=== PATIENT | female | born 1965 | race Caucasian/White ===

== ENCOUNTER → 2016-08-22 | Outpatient (CLI) | payer BC ==
[~2016-08-22] MED LIST: ASCA500 PO; IBUP-1427 PO; MULT-506 PO; OMEG10007 PO
[2016-08-22 18:31] LABS: BASO % 0.5 %; BASO ABS # 0.05 K/uL (0-0.2); COMPLETE YES; EOS % 2.7 %; HEMATOCRIT 40.2 % (37-47); IG% 0.1 %; LYMPH % 20.8 %; LYMPH ABS # 2.02 K/uL (1.2-3.4); MEAN CELL VOLUME 93.1 fL (80-100); MEAN CORPUSCULAR HEMOGLOBIN 31.7 pg (25-34); MEAN CORPUSCULAR HGB CONC 34.1 g/dl (32-36); MEAN PLATELET VOLUME 12.9 fL (7.4-10.4); MONO % 8.9 %; PLATELET COUNT 291 K/uL (130-400); RED BLOOD COUNT 4.32 M/uL (4.2-5.4)
== END | disposition home or self-care (01) ==
LOC: C.LABSPEC 17:10
PROVIDERS: ATTEND Internal Medicine
DX: M79.1 Myalgia (principal)

== ENCOUNTER → 2016-12-30 | Outpatient (CLI) | payer BC ==
[2016-12-30 09:33] LABS: BASO % 0.7 %; BASO ABS # 0.04 K/uL (0-0.2); COMPLETE YES; HEMATOCRIT 44.3 % (37-47); IG% 0.2 %; LYMPH ABS # 1.47 K/uL (1.2-3.4); MEAN CELL VOLUME 96.5 fL (80-100); MEAN CORPUSCULAR HEMOGLOBIN 31.8 pg (25-34); MEAN PLATELET VOLUME 12.3 fL (7.4-10.4); MONO % 6.8 %; NEUT % 63.3 %; PLATELET COUNT 260 K/uL (130-400); RED BLOOD COUNT 4.59 M/uL (4.2-5.4); WHITE BLOOD COUNT 5.45 K/uL (4.8-10.8)
[2016-12-30 09:47] LABS: ALB/GLOB RATIO 1.4 (0.9-2); ALT/SGPT 20 U/L (12-78); AST/SGOT 13 U/L (15-37); BLOOD UREA NITROGEN 15 mg/dl (7-18); BUN/CREATININE RATIO 22.3 (10-20); CALCIUM 9.1 mg/dl (8.5-10.1); CARBON DIOXIDE 32 mmol/L (21-32); CHLORIDE 107 mmol/L (98-107); CHOLESTEROL 192 mg/dl (0-200); CREATININE 0.67 mg/dl (0.60-1.20); GLUCOSE 88 mg/dl (70-99); SODIUM 143 mmol/L (136-145)
[2016-12-30 09:51] LABS: ALKALINE PHOSPHATASE 55 U/L (45-117); CHOLESTEROL/HDL RATIO 2.2; HDL CHOLESTEROL 86 mg/dl; TRIGLYCERIDES 71 mg/dl (0-150); VERY LOW DENSITY LIPOPROT CALC 14 mg/dl
== END | disposition home or self-care (01) ==
LOC: C.LAB 07:42
PROVIDERS: ATTEND Internal Medicine
DX: Z00.00 Encounter for general adult medical examination without abnormal findings (principal); Z02.1 Encounter for pre-employment examination; E78.5 Hyperlipidemia, unspecified

== ENCOUNTER → 2017-01-02 | Outpatient (CLI) | payer BC ==
--- NOTE | 2017-01-02 16:54 | DIAGNOSTIC IMAGING REPORT ---
CHEST 2 VIEWS ROUTINE CLINICAL HISTORY: WEIGHT LOSS, LAB AFTER dyspnea COMPARISON STUDY: 05/26/2006 FINDINGS: Unchanging left suprahilar calcified granuloma. Lungs are clear. Diaphragms are smooth. IMPRESSION: Chronic granulomatous change. No acute process. Electronically signed by: Tru Lau M.D. 01/02/2017 4:52 PM Dictated Date/Time: 01/02/2017 4:52 PM
[2017-01-02 17:49] LABS: THYROID STIMULATING HORMONE 1.9 uIu/ml (0.300-4.500)
== END | disposition home or self-care (01) ==
LOC: C.RAD 16:28
PROVIDERS: ATTEND Internal Medicine
DX: R63.4 Abnormal weight loss (principal); R06.00 Dyspnea, unspecified

== ENCOUNTER → 2017-04-24 | Outpatient (CLI) | payer BC | END | disposition home or self-care (01) | LOC: C.LABSPEC 14:52 | PROVIDERS: ATTEND Internal Medicine | DX: Z12.11 Encounter for screening for malignant neoplasm of colon (principal) ==

== ENCOUNTER → 2017-04-24 | Outpatient (CLI) | payer BC ==
[2017-04-24 18:26] LABS: URINE APPEARANCE CLEAR (CLEAR); URINE BILIRUBIN NEG (NEG); URINE COLOR DK YELLOW; URINE NITRITE NEG (NEG); URINE SPECIFIC GRAVITY 1.021 (1.000-1.030); UROBILINOGEN NEG (NEG)
[2017-04-24 18:29] LABS: BASO % 0.2 %; BASO ABS # 0.02 K/uL (0-0.2); COMPLETE YES; HEMATOCRIT 42.2 % (37-47); IG% 0.2 %; LYMPH % 18.5 %; LYMPH ABS # 1.67 K/uL (1.2-3.4); MANUAL MICROSCOPIC REQUIRED? NO; MEAN CELL VOLUME 98.1 fL (80-100); MEAN CORPUSCULAR HEMOGLOBIN 31.9 pg (25-34); MEAN CORPUSCULAR HGB CONC 32.5 g/dl (32-36); MEAN PLATELET VOLUME 12.5 fL (7.4-10.4); MONO % 8.4 %; NEUT % 71.7 %; PLATELET COUNT 268 K/uL (130-400); REVIEW REQ? NO; WHITE BLOOD COUNT 9.03 K/uL (4.8-10.8)
[2017-04-24 18:34] LABS: ALT/SGPT 19 U/L (12-78); BLOOD UREA NITROGEN 11 mg/dl (7-18); CALCIUM 9.2 mg/dl (8.5-10.1); CARBON DIOXIDE 27 mmol/L (21-32); CHLORIDE 104 mmol/L (98-107); GLUCOSE 85 mg/dl (70-99); POTASSIUM 3.6 mmol/L (3.5-5.1); SODIUM 138 mmol/L (136-145)
[2017-04-24 18:37] LABS: ALB/GLOB RATIO 1.3 (0.9-2); ALKALINE PHOSPHATASE 60 U/L (45-117); AST/SGOT 12 U/L (15-37)
[2017-04-28 15:32] LABS: VARICELLA ZOS VIR IGM AB <=0.90 (<=0.90)
== END | disposition home or self-care (01) ==
LOC: C.LABSPEC 17:27
PROVIDERS: ATTEND Internal Medicine
DX: M06.4 Inflammatory polyarthropathy (principal); Z11.59 Encounter for screening for other viral diseases

== ENCOUNTER → 2017-05-31 | Outpatient (CLI) | payer BC ==
--- NOTE | 2017-06-01 07:45 | MAMMOGRAPHY REPORT ---
BILATERAL DIGITAL SCREENING MAMMOGRAM TOMOSYNTHESIS WITH CAD: 05/31/2017 CLINICAL HISTORY: Routine screening. Patient has no complaints. TECHNIQUE: Breast tomosynthesis in addition to standard 2D mammography was performed. Current study was also evaluated with a Computer Aided Detection (CAD) system. COMPARISON: Comparison is made to exams dated: 05/19/2016 mammogram - [facility], mammogram, 04/18/2014 mammogram, 04/22/2013 mammogram, 04/20/2012 mammogram, and 04/19/2011 mammogra m - [facility]. BREAST COMPOSITION: The tissue of both breasts is heterogeneously dense, which may obscure small mas ses. FINDINGS: There is an asymmetry in the slightly lateral posterior right breast, near the fatglandul ar interface, only seen on the CC view corresponding tomosynthesis images. Although this could repre sent normal overlapping tissue, additional spot compression tomosynthesis views and possible ultrasou nd are recommended. No other suspicious mass, architectural distortion or cluster of microcalcifications is seen biljasmynea llmahsa. IMPRESSION: ACR BI-RADS CATEGORY 0: INCOMPLETE EVALUATION: NEED ADDITIONAL IMAGING EVALUATION The asymmetry in the slightly lateral and posterior right breast needs additional evaluation. The patient will be called to schedule an appointment. Approximately 10% of breast cancers are not detected with mammography. A negative mammographic report should not delay biopsy if a clinically suggestive mass is present. Elvia Whitman M.D. ay/:05/31/2017 16:09:21 Fruit Bar Maker: Audelia MEDINA(Salena)(Davi), [facility] letter sent: Addl Imaging 0 BI-RADS Code: ACR BI-RADS Category 0: Incomplete Evaluation: Need Additional Imaging Evaluation
== END | disposition home or self-care (01) ==
LOC: C.MAMM 11:02
PROVIDERS: ATTEND Surgery
DX: Z12.31 Encounter for screening mammogram for malignant neoplasm of breast (principal); R92.2 Inconclusive mammogram

== ENCOUNTER → 2017-06-02 | Outpatient (CLI) | payer BC ==
--- NOTE | 2017-06-07 08:59 | MAMMOGRAPHY REPORT ---
UNILATERAL RIGHT DIGITAL DIAGNOSTIC MAMMOGRAM TOMOSYNTHESIS AND TARGETED RIGHT ULTRASOUND: 06/02/2017 CLINICAL HISTORY: Callback from screening mammogram for right breast asymmetry. TECHNIQUE: Breast tomosynthesis in addition to standard 2D mammography was performed. Right CC and MLO compression 2-D and tomosynthesis images and spot compression rolled right cc tomosynthesis image s including C views were obtained. COMPARISON: Comparison is made to exams dated: 05/31/2017 mammogram, 05/19/2016 [address] - [facility], 04/29/2015 mammogram, 04/18/2014 mammogram, 04/22/2013 mammogram, and 04/20/2012 mammog delfino - [facility]. BREAST COMPOSITION: The tissue of the right breast is heterogeneously dense, which may obscure small masses. FINDINGS: The previously described asymmetry seen within the right lateral breast on the cc view only effaces on the additional spot compression CC views and rolled right cc views. Normal fibroglandula r tissue is seen in this region on the additional tomosynthesis images, without a suspicious mass or architectural distortion seen. Targeted ultrasound was performed of the right lateral breast in the region of the mammographic asymm etry. No suspicious masses or other suspicious sonographic abnormality is evident. IMPRESSION: ACR BI-RADS CATEGORY 2: BENIGN, TARGETED ULTRASOUND ACR BI-RADS CATEGORY 2: BENIGN The right breast asymmetry effaces on the additional views, without corresponding suspicious sonograp hic abnormality evident. Findings are benign and compatible with normal fibroglandular tissue. Ther e is no mammographic or targeted sonographic evidence of malignancy. A 1 year screening mammogram is recommended. The patient has been verbally notified of the results. Approximately 10% of breast cancers are not detected with mammography. A negative mammographic report should not delay biopsy if a clinically suggestive mass is present. Lsahonda Rawls M.D. ah/:06/02/2017 13:31:31 Set Up Technician: Larisa MEDINA(Salena)(Davi), [facility] letter sent: Normal 1/2 BI-RADS Code: ACR BI-RADS Category 2: Benign Ultrasound BI-RADS: ACR BI-RADS Category 2: Benign
== END | disposition home or self-care (01) ==
LOC: C.MAMM 12:39
PROVIDERS: ATTEND Internal Medicine
DX: N64.89 Other specified disorders of breast (principal)